=== PATIENT | female | born 1945 | race Caucasian/White ===

== ENCOUNTER 2019-02-22 13:29 | Outpatient (CLI) | payer OTHER ==
--- NOTE | 2019-02-22 14:38 | CT ---
ABDOMEN AND PELVIC CT SCAN WITHOUT IV CONTRAST: Date: 02/22/19 HISTORY: Recurrent urinary tract infections, microhematuria. FINDINGS: The lung bases appear clear. Somewhat lobulated, probably partially septated liver cyst measuring 3.7 x 5.0 cm. Multiple large gallstones without evidence for acute cholecystitis or ductal dilatation. P ancreas and spleen are unremarkable. Somewhat enlarged nodular adrenal glands bilaterally, evidence f or bilateral adrenal hyperplasia with a 2.2 x 3.4 cm diameter nodule of the left adrenal gland with C T attenuation coefficient suggesting that of benign adenoma. Probable tiny nonobstructing left renal calculus. No evidence for acute obstruction. No CT evidence for acute appendicitis. Urinary bladde r appears unremarkable. No evidence for large or small bowel obstruction. No mass, abscess, adenopath y, or abnormal fluid collection. Somewhat low-lying urinary bladder relative to the bony pelvis. IMPRESSION: 1. Possible very tiny nonobstructing left renal calculus. 2. Minimally enlarged adrenal glands bilaterally with the left adrenal nodule suggesting that of adr enal adenoma. 3. Liver cyst. 4. Somewhat low-lying urinary bladder. 5. Grade I spondylolisthesis of L4 and L5 with associated severe canal stenosis, as well as some mul tilevel lumbar stenotic disease in addition to the L4-L5 level. 6. Multiple gallstones without acute cholecystitis. 7. No ductal dilatation. POS: TPC
== END 2019-02-22 13:30 | disposition home or self-care (01) ==
LOC: BICCT 13:29
PROVIDERS: ATTEND Urology
DX: R31.9 Hematuria, unspecified (principal); K76.89 Other specified diseases of liver; M43.16 Spondylolisthesis, lumbar region; M48.061 Spinal stenosis, lumbar region without neurogenic claudication; K80.20 Calculus of gallbladder without cholecystitis without obstruction; E27.9 Disorder of adrenal gland, unspecified; N32.89 Other specified disorders of bladder
CPT/HCPCS: 74176

== ENCOUNTER 2019-11-30 07:40 | Outpatient (CLI) | payer MEDICARE ==
--- NOTE | 2019-11-30 09:00 | RAD ---
LEFT HIP 2 VIEWS: HISTORY: Left hip pain. FINDINGS/IMPRESSION: Degenerative changes are present. No fracture, dislocation, or bony destruction is identified. POS: OFF
--- NOTE | 2019-11-30 09:46 | MMO ---
Bilateral MAMMO Bilat Screen [facility]. CLINICAL HISTORY: Patient is 74 years old and is seen for screening. The patient has the following family history of breast cancer: mother. The patient has no personal history of cancer. VIEWS: The views performed were: bilateral craniocaudal with tomosynthesis; bilateral mediolateral oblique with tomosynthesis; and left mediolateral oblique. FILMS COMPARED: The present examination has been compared to prior imaging studies performed at [facility] on 06/05/2002, and at [facility] on 04/18/2004 and 05/14/2014. This study has been interpreted with the assistance of computer-aided detection. MAMMOGRAM FINDINGS: The breasts are almost entirely fat. There are no suspicious masses, suspicious calcifications, or new areas of architectural distortion. IMPRESSION: THERE IS NO MAMMOGRAPHIC EVIDENCE OF MALIGNANCY. A ROUTINE FOLLOW-UP MAMMOGRAM IN 1 YEAR IS RECOMMENDED. THE RESULTS OF THIS EXAM WERE SENT TO THE PATIENT. ACR BI-RADS Category 1 - Negative MAMMOGRAPHY NOTE: 1. A negative mammogram report should not delay a biopsy if a dominant of clinically suspicious mass is present. 2. Approximately 10% to 15% of breast cancers are not detected by mammography. 3. Adenosis and dense breasts may obscure an underlying neoplasm. Reported by: HAILY BRIGHT MD Electonically Signed: [id number]
== END 2019-11-30 07:41 | disposition home or self-care (01) ==
LOC: BICMAMMO 07:40
PROVIDERS: ATTEND Family Medicine
DX: Z12.31 Encounter for screening mammogram for malignant neoplasm of breast (principal); M25.552 Pain in left hip; M16.12 Unilateral primary osteoarthritis, left hip; Z80.3 Family history of malignant neoplasm of breast
CPT/HCPCS: 77063; 77067

== ENCOUNTER 2020-04-23 08:30 | Outpatient (CLI) | payer MEDICARE ==
--- NOTE | 2020-04-23 09:49 | BD ---
DEXA BONE DENSITY STUDY: Date: 04/23/2020 HISTORY: Osteoporosis screening. COMPARISON: None. FINDINGS: Lumbar Spine: BMD (g/cm2) L1 1.401 T-Score: 3.7 Z-Score: 5.8 L2 1.650 T-Score: 5.7 Z-Score: 8.0 L3 1.564 T-Score: 4.4 Z-Score: 6.8 L4 1.545 T-Score: 4.4 Z-Score: 6.9 L1-L4 1.541 T-Score: 4.5 Z-Score: 6.8 Left Femoral Neck: 0.766 T-Score: -0.7 Z-Score: 1.3 Total Femur: 1.022 T-Score: 0.7 Z-Score: 2.4 WHO Classification: Normal. IMPRESSION: Normal bone mineral density. POS: ZEB
== END 2020-04-23 08:31 | disposition home or self-care (01) ==
LOC: BICMAMMO 08:30
PROVIDERS: ATTEND Family Medicine
DX: N95.9 Unspecified menopausal and perimenopausal disorder (principal)
CPT/HCPCS: 77080

== ENCOUNTER 2020-09-23 12:36 | Outpatient (CLI) | payer MEDICARE | END 2020-09-23 12:37 | disposition home or self-care (01) | LOC: BICRAD 12:36 | PROVIDERS: ATTEND Physician Assistant | DX: M48.061 Spinal stenosis, lumbar region without neurogenic claudication (principal); M47.26 Other spondylosis with radiculopathy, lumbar region; M51.16 Intervertebral disc disorders with radiculopathy, lumbar region | CPT/HCPCS: 72110 ==

== ENCOUNTER 2020-11-28 08:15 | Inpatient (IN) | payer MEDICARE ==
[2020-11-28] MEDS ORDERED: Thrombin 5000 UNITS/5 ML VIAL ONE (08:57)
[2020-11-28] MEDS ORDERED: Fentanyl 250 MCG/5 ML VIAL ONE (09:34)
[2020-11-28] MEDS ORDERED: Ketorolac Tromethamine 30 MG/ML VIAL ONE (10:04)
[2020-11-28] MEDS ORDERED: Lidocaine 1% PF 5 ML VIAL ONE (10:04)
[2020-11-28] MEDS ORDERED: PROPOFOL 200 MG/20 ML VIAL ONE (10:04)
[2020-11-28] MEDS ORDERED: Ondansetron PF 4 MG/2 ML Vial ONE (10:04)
[2020-11-28] MEDS ORDERED: Esmolol 100 MG/10 ML VIAL ONE (10:04)
[2020-11-28] MEDS ORDERED: Rocuronium Bromide 10 MG/ML (10ML VIAL) ONE (10:04)
[2020-11-28] MEDS ORDERED: Promethazine HCl 25 MG/ML VIAL IM PRN (12:38)
[2020-11-28] MEDS ORDERED: Morphine Sulfate 2 MG/ML SYRINGE SLOW IVP PRN (12:38)
[2020-11-28] MEDS ORDERED: PACU-Morphine 4MG/ML VIAL SLOW IVP PRN (12:38)
[2020-11-28] MEDS ORDERED: HYDROmorphone 2 MG/ML VIAL SLOW IVP PRN (12:38)
[2020-11-28] MEDS ORDERED: Promethazine HCl 25 MG/ML VIAL IVPB PRN (12:38)
[2020-11-28] MEDS ORDERED: Ondansetron HCl/PF 4 MG/2 ML Vial IVP PRN (12:38)
[2020-11-28] MEDS ORDERED: SUGAMMADEX SODIUM 200 MG/2 ML VIAL ONE (12:42)
[2020-11-28] MEDS ORDERED: Acetaminophen 325 MG TAB PO PRN (13:39)
[2020-11-28] MEDS ORDERED: traMADol HCl 50 MG TAB PO PRN (13:51)
[2020-11-28] MEDS ORDERED: Fentanyl 100 MCG/2 ML VIAL ONE ×2 (13:58→14:30)
[2020-11-28] MEDS: HYDROcodone/Acetaminophen 7.5/325 mg Tablet PO PRN (15:53)
[2020-11-28] MEDS: metFORMIN 500 MG TAB PO SCH (17:10)
[2020-11-28] MEDS: CEFAZOLIN 2 GM in Premix Bag 1 BAG IVPB SCH (17:11)
[2020-11-28] MEDS: Sodium Chloride 0.9% 1,000 ML IV SCH (17:11)
[2020-11-28] MEDS: Acetaminophen/Codeine 30-300mg Tablet PO PRN (17:22)
[2020-11-28] MEDS: Temazepam 15 MG CAP PO SCH (20:06)
[2020-11-28] MEDS: Rosuvastatin 10 MG TAB PO SCH (20:06)
[2020-11-28] MEDS: Morphine 2 MG/ML VIAL SLOW IVP PRN (20:06)
[2020-11-28] MEDS: Cephalexin 250 MG CAP PO SCH (20:06)
[2020-11-28] MEDS: Latanoprost 0.005% Ophth Soln 2.5 ml Bottle EA EYE SCH (23:26)
[2020-11-29] MEDS: CEFAZOLIN 2 GM in Premix Bag 1 BAG IVPB SCH (00:58)
[2020-11-29] MEDS: Morphine 2 MG/ML VIAL SLOW IVP PRN ×4 (00:58→11:23)
[2020-11-29] MEDS: Sodium Chloride 0.9% 1,000 ML IV SCH ×2 (03:10→18:50)
[2020-11-29] MEDS: Ramipril 5 MG CAP PO SCH (09:14)
[2020-11-29] MEDS: tiZANidine HCl 4 MG TAB PO PRN ×2 (09:14→17:13)
[2020-11-29] MEDS: metFORMIN 500 MG TAB PO SCH ×2 (09:14→17:13)
[2020-11-29] MEDS: Lantus 1000 UNITS/10 ML VIAL SC SCH (09:47)
[2020-11-29] MEDS: Ibuprofen 600 MG TAB PO PRN (17:14)
[2020-11-29] MEDS: Rosuvastatin 10 MG TAB PO SCH (20:13)
[2020-11-29] MEDS: Cephalexin 250 MG CAP PO SCH (20:13)
[2020-11-29] MEDS: Temazepam 15 MG CAP PO SCH (20:13)
[2020-11-29] MEDS: Latanoprost 0.005% Ophth Soln 2.5 ml Bottle EA EYE SCH (20:14)
[2020-11-30] MEDS: Acetaminophen/Codeine 30-300mg Tablet PO PRN ×2 (00:01→06:12)
[2020-11-30] MEDS: Sodium Chloride 0.9% 1,000 ML IV SCH ×2 (01:37→19:12)
[2020-11-30] MEDS: Lantus 1000 UNITS/10 ML VIAL SC SCH (08:24)
[2020-11-30] MEDS: metFORMIN 500 MG TAB PO SCH ×2 (08:25→18:01)
[2020-11-30] MEDS: Ramipril 5 MG CAP PO SCH (08:25)
[2020-11-30] MEDS: HYDROcodone/Acetaminophen 7.5/325 mg Tablet PO PRN (10:02)
[2020-11-30] MEDS: Latanoprost 0.005% Ophth Soln 2.5 ml Bottle EA EYE SCH (19:53)
[2020-11-30] MEDS: Cephalexin 250 MG CAP PO SCH (19:54)
[2020-11-30] MEDS: Rosuvastatin 10 MG TAB PO SCH (19:54)
[2020-11-30] MEDS: Temazepam 15 MG CAP PO SCH (19:55)
[2020-11-30] MEDS: Morphine 2 MG/ML VIAL SLOW IVP PRN (19:57)
[2020-12-01] MEDS: Lantus 1000 UNITS/10 ML VIAL SC SCH (08:06)
[2020-12-01] MEDS: Ramipril 5 MG CAP PO SCH (08:06)
[2020-12-01] MEDS: metFORMIN 500 MG TAB PO SCH ×2 (08:07→17:00)
[2020-12-01] MEDS: HYDROcodone/Acetaminophen 7.5/325 mg Tablet PO PRN (10:12)
[2020-12-01] MEDS: Sodium Chloride 0.9% 1,000 ML IV SCH ×2 (11:16→21:33)
[2020-12-01] MEDS: Morphine 2 MG/ML VIAL SLOW IVP PRN (21:13)
[2020-12-01] MEDS: Rosuvastatin 10 MG TAB PO SCH (21:30)
[2020-12-01] MEDS: Cephalexin 250 MG CAP PO SCH (21:31)
[2020-12-01] MEDS: Temazepam 15 MG CAP PO SCH (21:31)
[2020-12-01] MEDS: Latanoprost 0.005% Ophth Soln 2.5 ml Bottle EA EYE SCH (21:33)
[2020-12-02] MEDS: metFORMIN 500 MG TAB PO SCH ×2 (08:22→17:29)
[2020-12-02] MEDS: HYDROcodone/Acetaminophen 7.5/325 mg Tablet PO PRN ×2 (08:23→18:43)
[2020-12-02] MEDS: Lantus 1000 UNITS/10 ML VIAL SC SCH (09:42)
[2020-12-02] MEDS: Ramipril 5 MG CAP PO SCH (09:42)
[2020-12-02] MEDS: tiZANidine HCl 4 MG TAB PO PRN ×2 (09:49→18:32)
[2020-12-02] MEDS: Sodium Chloride 0.9% 1,000 ML IV SCH (11:10)
[2020-12-02] MEDS ORDERED: Dextrose 5% in Water 1,000 ML IV PRN (12:15)
[2020-12-02] MEDS ORDERED: HumaLOG 300 UNITS/3 ML VIAL SC PRN ×2 (12:15)
[2020-12-02] MEDS ORDERED: Dextrose 50% Abboject 50 ML SYRINGE IVP PRN (12:15)
[2020-12-02] MEDS ORDERED: traMADol HCl 50 MG TAB PO PRN (14:01)
[2020-12-02 14:08] VITALS: BMI 33.4
[2020-12-02] MEDS: Rosuvastatin 10 MG TAB PO SCH (20:47)
[2020-12-02] MEDS: Cephalexin 250 MG CAP PO SCH (20:47)
[2020-12-02] MEDS: Ibuprofen 600 MG TAB PO PRN (20:48)
[2020-12-02] MEDS: Latanoprost 0.005% Ophth Soln 2.5 ml Bottle EA EYE SCH (20:48)
[2020-12-02] MEDS: Temazepam 15 MG CAP PO SCH (20:48)
[2020-12-02 20:49] VITALS: BP 107/61
[2020-12-02] MEDS: Acetaminophen/Codeine 30-300mg Tablet PO PRN (20:49)
[2020-12-02 22:09] VITALS: TEMP 98
== END 2020-12-02 20:50 | DRG 460 ==
LOC: SDC 08:15 → SURG A 13:31
PROVIDERS: ADMIT Surgery; ATTEND Surgery
PROC: 01NB0ZZ Release Lumbar Nerve, Open Approach (ICD-10-PCS; principal; 2020-11-28)
PROC: 01NR0ZZ Release Sacral Nerve, Open Approach (ICD-10-PCS; 2020-11-28)
PROC: 0SG0071 Fusion of Lumbar Vertebral Joint with Autologous Tissue Substitute, Posterior Approach, Posterior Column, Open Approach (ICD-10-PCS; 2020-11-28)
DX: M48.062 Spinal stenosis, lumbar region with neurogenic claudication (principal); Z20.822 Contact with and (suspected) exposure to COVID-19; M47.26 Other spondylosis with radiculopathy, lumbar region; M62.830 Muscle spasm of back; I10 Essential (primary) hypertension; E78.5 Hyperlipidemia, unspecified; E11.9 Type 2 diabetes mellitus without complications; M19.90 Unspecified osteoarthritis, unspecified site; F32.9 Major depressive disorder, single episode, unspecified; H40.9 Unspecified glaucoma; Z96.653 Presence of artificial knee joint, bilateral; E66.9 Obesity, unspecified; Z68.33 Body mass index [BMI] 33.0-33.9, adult; Z90.710 Acquired absence of both cervix and uterus; Z87.440 Personal history of urinary (tract) infections; Z79.899 Other long term (current) drug therapy; Z79.4 Long term (current) use of insulin
CPT/HCPCS: 36416; 76000; C1713; J0690; J1815; J1885; J2270; J2405; J2704; J3010; J3370

== ENCOUNTER 2021-04-13 18:36 | Emergency (ER) | payer OTHER, MEDICARE ==
[2021-04-13] MEDS ORDERED: Ondansetron ODT 4 MG TAB ONE (20:20)
== END 2021-04-13 20:28 | disposition home or self-care (01) ==
LOC: ERS 18:36
DX: S42.201A Unspecified fracture of upper end of right humerus, initial encounter for closed fracture (principal); I10 Essential (primary) hypertension; E11.9 Type 2 diabetes mellitus without complications; W01.0XXA Fall on same level from slipping, tripping and stumbling without subsequent striking against object, initial encounter
CPT/HCPCS: Q0162

== ENCOUNTER 2023-04-21 08:56 | Outpatient (CLI) | payer OTHER | END 2023-04-21 08:57 | disposition home or self-care (01) | LOC: BICMAMMO 08:56 | PROVIDERS: ATTEND Family Medicine | DX: Z12.31 Encounter for screening mammogram for malignant neoplasm of breast (principal); Z91.89 Other specified personal risk factors, not elsewhere classified; Z80.3 Family history of malignant neoplasm of breast | CPT/HCPCS: 77063; 77067 ==

== ENCOUNTER 2024-05-26 20:25 | Observation (INO) | payer OTHER ==
[~2024-05-26 20:25] MED LIST: Iopamidol-370 76% 500 ML MDV (1 ML CHARGE) ONE
[2024-05-26 20:53] LABS: %Basophils 1.2 % (0.0-1.0); %Eosinophils 2.9 % (0.0-10.0); %Lymphocytes 27.8 % (21.0-51.0); %Monocytes 9.3 % (0.0-10.0); %Neutrophils 58.4 % (42.0-75.0); Hemoglobin 13.4 g/dL (12.0-16.0); Mean Corpuscular HGB CONC 33.5 g/dL (32.0-36.0); Mean Corpuscular Hemoglobin 32.2 pg (27.0-31.0); Mean Corpuscular Volume 96.2 fL (78.0-98.0); Mean Platelet Volume 10.7 fL (7.4-10.4); Platelet Count 301 10x3/uL (130-400); RBC Distribution Width 13.6 % (11.5-14.5); Red Blood Cell (RBC) Count 4.16 mill/uL (4.20-5.40)
[2024-05-26 21:06] LABS: ALT (SGPT) 13 U/L (8-55); AST (SGOT) 17 U/L (5-34); Albumin 3.8 g/dL (3.4-4.8); Alkaline Phosphatase 74 U/L (40-110); Anion Gap 19 mmol/L (10-20); BUN (Urea Nitrogen) 27 mg/dL (9.8-20.1); Bilirubin, Total 0.3 mg/dL (0.2-1.2); Calc. Creatinine Clearance 0 mL/min (70-130); Carbon Dioxide 18 mmol/L (23-31); Chloride 104 mmol/L (98-107); Estimated GFR 62; Globulin 3.8 g/dL (2.4-3.5); Glucose 278 mg/dL (83-110); Potassium 4.7 mmol/L (3.5-5.1); Protein, Total 7.6 g/dL (5.8-8.1); Sodium 136 mmol/L (136-145)
[2024-05-26 21:12] LABS: Troponin I Less than 0.010 ng/mL (< 0.028)
[2024-05-26] MEDS ORDERED: fentaNYL 50 mcg/mL 1 mL Vial ONE (21:47)
[2024-05-26] MEDS ORDERED: Ondansetron PF 4 MG/2 ML Vial IVP PRN (23:05)
[2024-05-26] MEDS ORDERED: Dextrose 5% in Water 1,000 ML IV PRN (23:05)
[2024-05-26] MEDS ORDERED: Dextrose 50% Abboject 50 ML SYRINGE SLOW IVP PRN (23:05)
[2024-05-26] MEDS ORDERED: Glucagon 1 MG/ML KIT IM PRN (23:05)
[2024-05-27 00:54] VITALS: BMI 27.4
[2024-05-27 03:54] LABS: #Basophils 0.04 10x3/uL (0.0-0.2); #Eosinophils Less than 0.03 10x3/uL (0.0-0.7); %Basophils 0.4 % (0.0-1.0); %Eosinophils 0.1 % (0.0-10.0); %Monocytes 7.5 % (0.0-10.0); %Neutrophils 73.8 % (42.0-75.0); Hematocrit 38.1 % (36.0-47.0); Hemoglobin 12.9 g/dL (12.0-16.0); Mean Corpuscular HGB CONC 33.9 g/dL (32.0-36.0); Mean Corpuscular Hemoglobin 32.3 pg (27.0-31.0); Mean Corpuscular Volume 95.3 fL (78.0-98.0); Mean Platelet Volume 10.9 fL (7.4-10.4); Platelet Count 308 10x3/uL (130-400); RBC Distribution Width 13.5 % (11.5-14.5)
[2024-05-27 04:27] LABS: Anion Gap 14 mmol/L (10-20); BUN (Urea Nitrogen) 21 mg/dL (9.8-20.1); Calc. Creatinine Clearance 90 mL/min (70-130); Calcium 8.9 mg/dL (7.8-10.44); Carbon Dioxide 23 mmol/L (23-31); Chloride 103 mmol/L (98-107); Estimated GFR 89; Glucose 254 mg/dL (83-110); Potassium 4.3 mmol/L (3.5-5.1); Sodium 136 mmol/L (136-145)
[2024-05-27] MEDS ORDERED: metFORMIN 500 MG TAB PO SCH (08:00)
[2024-05-27] MEDS ORDERED: Dextrose 5% in Water 1,000 ML IV PRN (08:14)
[2024-05-27] MEDS ORDERED: Dextrose 50% Abboject 50 ML SYRINGE SLOW IVP PRN (08:14)
[2024-05-27] MEDS ORDERED: Glucagon 1 MG/ML KIT IM PRN (08:14)
[2024-05-27] MEDS: NIFEdipine XL 90 MG ER.TAB PO SCH (09:46)
[2024-05-27] MEDS: Rosuvastatin 10 MG TAB PO SCH (09:46)
[2024-05-27 12:31] VITALS: TEMP 98
[2024-05-27] MEDS: Insulin Regular, Human 100 UNIT/ML 10 ML VIAL SC PRN (13:17)
[2024-05-27 14:33] VITALS: BP 140/77
== END 2024-05-27 15:35 | disposition home or self-care (01) ==
LOC: ERS 20:25 → 2SE 23:04 → INTOOBSV 23:04
PROVIDERS: ADMIT Specialist; ATTEND Specialist
DX: S06.6XAA Traumatic subarachnoid hemorrhage with loss of consciousness status unknown, initial encounter (principal); I10 Essential (primary) hypertension; E11.9 Type 2 diabetes mellitus without complications; E78.5 Hyperlipidemia, unspecified; Z88.8 Allergy status to other drugs, medicaments and biological substances; Z88.2 Allergy status to sulfonamides; Z79.84 Long term (current) use of oral hypoglycemic drugs; Z79.899 Other long term (current) drug therapy; W19.XXXA Unspecified fall, initial encounter
CPT/HCPCS: 70450 ×2; 70486; 70496; 71045; 80048; 80053; 82962; 84484; 85025 ×2; 93005; 96374; 97116; 99285; J1815; J3010; Q9967; 36415; 36416; G0378; G0390